=== PATIENT | female | born 1950 | race Two or more races ===

== ENCOUNTER 2025-01-30 10:00 | Outpatient (CLI) | payer OTHER | END 2025-01-30 10:06 | disposition home or self-care (01) | LOC: SONOGRAMA 10:00 | PROVIDERS: ATTEND Pathology Anatomic Pathology & Clinical Pathology | DX: D34 Benign neoplasm of thyroid gland (principal); E07.89 Other specified disorders of thyroid; E04.2 Nontoxic multinodular goiter ==